=== PATIENT | female | born 1970 | race African-American/Black ===

== ENCOUNTER 2022-07-28 05:58 | Emergency (ER) | payer BC, SELFPAY | END 2022-07-28 08:10 | disposition home or self-care (01) | LOC: CSHERS 05:58 | DX: N83.201 Unspecified ovarian cyst, right side (principal); E11.9 Type 2 diabetes mellitus without complications; K21.9 Gastro-esophageal reflux disease without esophagitis; E78.00 Pure hypercholesterolemia, unspecified; I10 Essential (primary) hypertension; Z87.891 Personal history of nicotine dependence | CPT/HCPCS: 76856 ==